=== PATIENT | female | born 1950 | race Caucasian/White ===

== ENCOUNTER 2023-11-20 06:01 | Day surgery (SDC) | payer OTHER, MEDICARE ==
[2023-11-16 12:34] VITALS: BMI 23.7
[2023-11-20] MEDS ORDERED: TETRACAINE 0.5% OPHTH SOLN 2 ML BOTTLE ONE (07:14)
[2023-11-20] MEDS ORDERED: ERYTHROMYCIN 0.5% OPHTHALMIC OINTMENT 3.5 GM TUBE ONE (07:14)
[2023-11-20] MEDS ORDERED: ceFAZolin SODIUM 1 GM VIAL ONE ×2 (07:14→07:19)
[2023-11-20] MEDS ORDERED: BUPIVACAINE HCL/PF 0.5% (5MG/ML) 10 ML VIAL ONE (07:15)
[2023-11-20] MEDS ORDERED: LIDOCAINE HCL 1%, 10 MG/ML (20ML VIAL) ONE (07:15)
[2023-11-20] MEDS ORDERED: POVIDONE-IODINE 5% OPHTHALMIC PREP 30 ML SOLUTION ONE ×2 (07:15→07:43)
[2023-11-20] MEDS ORDERED: MIDAZOLAM HCL 2 MG/2 ML SINGLE DOSE VIAL ONE (07:19)
[2023-11-20] MEDS ORDERED: PROPOFOL 60 ML ONE ×4 (07:19→10:42)
[2023-11-20] MEDS ORDERED: LIDOCAINE 1%/EPI 1:100000 (20 ML MULTI DOSE VIAL) ONE (07:22)
[2023-11-20] MEDS ORDERED: DEXAMETHASONE SOD PHOSPHATE 4 MG/1 ML VIAL ONE (09:46)
[2023-11-20] MEDS ORDERED: ONDANSETRON 4 MG/2 ML VIAL ONE (09:46)
[2023-11-20] MEDS ORDERED: THROMBIN (BOVINE) 5,000 UNIT VIAL TP ONE (10:23)
[2023-11-20] MEDS ORDERED: PROPOFOL 40 ML ONE (11:22)
[2023-11-20] MEDS ORDERED: ONDANSETRON 4 MG/2 ML VIAL IVPUSH PRN (12:14)
[2023-11-20] MEDS ORDERED: oxyCODONE HCL 5 MG TABLET PO PRN (12:14)
[2023-11-20] MEDS ORDERED: LACTATED RINGERS SOLUTION 1,000 ML IV SCH (12:15)
[2023-11-20] MEDS ORDERED: ACETAMINOPHEN INJECTION 100 ML IVPB ONE (12:16)
[2023-11-20] MEDS: ACETAMINOPHEN 1000 MG/100 ML BAG IVPB ONE (12:32)
[2023-11-20 13:58] VITALS: RESP 18; TEMP 98
[2023-11-20 14:52] VITALS: BP 144/78; PULSE 70
== END 2023-11-20 15:00 | disposition home or self-care (01) ==
LOC: FASU 06:01
PROVIDERS: ATTEND Ophthalmology
PROC: 080R0ZZ Alteration of Left Lower Eyelid, Open Approach (ICD-10-PCS; 2023-11-20)
PROC: 080Q0ZZ Alteration of Right Lower Eyelid, Open Approach (ICD-10-PCS; 2023-11-20)
PROC: 080P0ZZ Alteration of Left Upper Eyelid, Open Approach (ICD-10-PCS; 2023-11-20)
PROC: 080N0ZZ Alteration of Right Upper Eyelid, Open Approach (ICD-10-PCS; 2023-11-20)
PROC: 08SP0ZZ Reposition Left Upper Eyelid, Open Approach (ICD-10-PCS; principal; 2023-11-20 08:26)
PROC: 08SN0ZZ Reposition Right Upper Eyelid, Open Approach (ICD-10-PCS; 2023-11-20 08:26)
DX: H02.403 Unspecified ptosis of bilateral eyelids (principal); H02.834 Dermatochalasis of left upper eyelid; H02.831 Dermatochalasis of right upper eyelid; H02.835 Dermatochalasis of left lower eyelid; H02.832 Dermatochalasis of right lower eyelid
CPT/HCPCS: 94760; J0131